=== PATIENT | female | born 1950 | race African-American/Black ===

== ENCOUNTER 2016-09-09 07:09 | Day surgery (SDC) | payer BC ==
[2016-09-02 14:06] VITALS: BMI 38.2
[2016-09-09] MEDS ORDERED: BUPIVACAINE HCL/PF 2.5 MG/ML - 30 ML VIAL IJ ONE (08:53)
[2016-09-09] MEDS ORDERED: MIDAZOLAM HCL 2 MG/2 ML SINGLE DOSE VIAL ONE (09:09)
[2016-09-09] MEDS ORDERED: PROPOFOL 20 ML ONE ×2 (09:13)
[2016-09-09] MEDS ORDERED: LIDOCAINE HCL/PF 2% SDV 5ML VIAL ONE (09:20)
[2016-09-09] MEDS ORDERED: KETOROLAC TROMETHAMINE 30 MG/1 ML VIAL ONE (09:21)
[2016-09-09] MEDS ORDERED: ONDANSETRON 4 MG/2 ML VIAL ONE ×2 (09:21→10:27)
[2016-09-09] MEDS ORDERED: ceFAZolin SODIUM 1 GM VIAL ONE (09:21)
[2016-09-09] MEDS ORDERED: DEXAMETHASONE SOD PHOSPHATE 4 MG/1 ML VIAL ONE (09:21)
[2016-09-09] MEDS ORDERED: BUPIVACAINE HCL/PF 0.25% (2.5MG/ML) 10 ML VIAL IJ ONE (09:35)
[2016-09-09] MEDS ORDERED: oxyCODONE HCL 5 MG TABLET PO PRN (10:11)
[2016-09-09] MEDS ORDERED: ONDANSETRON 4 MG/2 ML VIAL IVPUSH PRN (10:11)
[2016-09-09] MEDS ORDERED: LACTATED RINGERS SOLUTION 1,000 ML IV SCH (10:15)
[2016-09-09 13:00] VITALS: TEMP 98.2
[2016-09-09 13:05] VITALS: BP 119/61; PULSE 66
--- NOTE | 2016-09-12 00:30 | OP ---
DATE OF OPERATION: 09/09/2016 SURGEON: Danelle Marino MD SAND CARRIER: IVCK Turpin PREOPERATIVE DIAGNOSIS: 1. Right knee medial and lateral meniscal tear. 2. Right knee cartilage injury. 3. Right knee synovitis. POSTOPERATIVE DIAGNOSIS: 1. Right knee medial and lateral meniscal tear. 2. Right knee cartilage injury. 3. Right knee synovitis. PROCEDURE: 1. Right knee arthroscopy with partial meniscectomy of medial and lateral meniscus. 2. Right knee arthroscopy with chondroplasty and abrasioplasty. 3. Right knee arthroscopy with synovectomy major. CPT code 37173, 83127, 20338. FINDINGS: 1. Medial meniscus body and posterior horn tear. 2. Lateral meniscus posterior one-half tear. 3. Synovitis of patellofemoral, medial and lateral notch area. 4. Diffuse grade 2-3 cartilage injury of medial femoral condyle. 5. ACL and PCL intact. 6. Diffuse grade 2-3 cartilage changes of the lateral tibial plateau and femoral condyle. 7. Grade 1-2 cartilage injury of patella central grade 4 changes and 2-4 changes of the patellofemoral trochlea. PROCEDURE: Informed consent was obtained. The patient was taken to the operating room where the right lower extremity was prepped and draped in a sterile fashion. A tourniquet was placed on the right upper thigh but not inflated. Using standard arthroscopic technique, a lateral incision and portal were made which allowed for introduction of the camera into the suprapatellar bursa. This was then taken to the medial joint line where under direct visualization, a medial incision and portal were made. Excessive synovium noted in the medial, lateral, patellofemoral and notch area was removed by the up-biting shaver and Bovie cautery. This was found to bring inflammatory tissue into the joint surface, a source of joint pain and dysfunction. Probing of the medial and lateral meniscus found tears described in the findings. These were removed with an up-biting shaver and taken back to a stable rim. Grade 2-3 degenerative changes were treated with chondroplasty, removing all flaking surfaces with low setting Bovie used along the periphery. Grade 4 changes were treated with abrasion-plasty. All areas of the knee were once again re-examined. The knee was then drained. A single suture was placed on all portals. Sterile dressing was placed. The patient was transferred to the recovery room. Please note, that when working on the medial joint line there was a strain of the MCL with a partial tear by clinical examination, not found to be a complete tear. DANELLE MARINO M.D. [id number]
--- NOTE | 2016-09-15 16:45 | PATH ---
Surgical Pathology Report Patient Name: ANNALISE MOREIRA [facility]. Rec. #: [id number] /Age/Gender: 1950 (Age: 66) / F Account: [id number] Location: [facility] AMBULATORY Taken: 09/09/2016 Received: 09/09/2016 Reported: 09/15/2016 Physicians: Amor Nevarez M.D. Specimen(s) Received RIGHT KNEE SHAVINGS Clinical History Right knee internal derangement Final Diagnosis KNEE, RIGHT, ARTHROSCOPIC SHAVINGS: FIBROSYNOVIAL AND FIBROCOLLAGENOUS TISSUE. Electronically Signed Claudette Gallagher M.D. Gross Description Received in formalin, labeled "right knee shavings," is a 4.0 x 3.5 x 0.4 cm. aggregate of jiang-yellow soft tissue fragments. A healthcare sales representative portion is submitted in one cassette. /09/09/2016 saudi09/09/2016
== END 2016-09-09 12:30 | disposition home or self-care (01) ==
LOC: FASU 07:09
PROVIDERS: ATTEND Orthopaedic Surgery
PROC: 0SBC4ZZ Excision of Right Knee Joint, Percutaneous Endoscopic Approach (ICD-10-PCS; 2016-09-09)
PROC: 0SBC4ZZ Excision of Right Knee Joint, Percutaneous Endoscopic Approach (ICD-10-PCS; 2016-09-09)
PROC: 0SBC4ZZ Excision of Right Knee Joint, Percutaneous Endoscopic Approach (ICD-10-PCS; principal; 2016-09-09 09:28)
DX: S83.241A Other tear of medial meniscus, current injury, right knee, initial encounter (principal); S83.281A Other tear of lateral meniscus, current injury, right knee, initial encounter; S83.8X1A Sprain of other specified parts of right knee, initial encounter; M65.861 Other synovitis and tenosynovitis, right lower leg; X58.XXXA Exposure to other specified factors, initial encounter; Y93.9 Activity, unspecified; Y92.9 Unspecified place or not applicable
CPT/HCPCS: 88304-TC; 94760

== ENCOUNTER 2022-03-15 21:44 | Inpatient (IN) | payer OTHER, BC ==
[2022-03-15 21:54] VITALS: BMI 39.9
[2022-03-15] MEDS ORDERED: SODIUM CHLORIDE 3,266 ML IV ONE (22:06)
[2022-03-15] MEDS ORDERED: ACETAMINOPHEN 1000 MG/100 ML BAG IVPB ONE (22:08)
[2022-03-15] MEDS ORDERED: ONDANSETRON 4 MG/2 ML VIAL IVPUSH ONE (22:09)
[2022-03-15] MEDS ORDERED: ACETAMINOPHEN INJECTION 100 ML IVPB ONE (22:19)
[2022-03-15] MEDS ORDERED: ONDANSETRON 4 MG/2 ML VIAL ONE (22:19)
[2022-03-15 23:08] LABS: BASO % 0.3 % (0-2.0); EOS % 0.1 % (0-4.5); HEMATOCRIT 41.2 % (32.4-45.2); HEMOGLOBIN 13.5 GM/dL (10.7-15.3); LYMPH % 6.1 % (8-40); MCH 30.5 pg (25.7-33.7); MCHC 32.8 g/dl (32.0-36.0); MEAN CELL VOLUME 93.1 fl (80-96); MEAN PLT VOLUME 7.9 fl (7.5-11.1); MONO % 19.3 % (3.8-10.2); NEUT % 74.2 % (42.8-82.8); PLATELET COUNT 205 10^3/uL (134-434); RBC 4.42 M/mm3 (3.60-5.2); RDW 13.5 % (11.6-15.6); VENOUS BASE EXCESS 3.9 mmol/L (-2-2); VENOUS O2 SATURATION 68.2 % (70-80); VENOUS PCO2 47.4 mmHg (38-52); VENOUS PH 7.41 (7.310-7.410); WHITE BLOOD COUNT 4.7 K/mm3 (4.0-10.0)
[2022-03-15 23:15] LABS: INR 1.14 (0.83-1.09); PROTHROMBIN TIME (PATIENT) 13.1 SEC (9.7-13.0)
[2022-03-15 23:18] LABS: ACTIVATED PTT 26.5 SECONDS (25.2-36.5)
[2022-03-15 23:28] LABS: CHLORIDE 99 mmol/L (98-107); SODIUM 135 mmol/L (136-145)
[2022-03-15 23:32] LABS: ALBUMIN 3.3 g/dl (3.4-5.0); ANION GAP 7 MMOL/L (8-16); CALCIUM 8.9 mg/dL (8.5-10.1); CO2 29 mmol/L (21-32); GLUCOSE,RANDOM 187 mg/dL (74-106)
[2022-03-15 23:33] LABS: BLOOD UREA NITROGEN 14.8 mg/dL (7-18)
[2022-03-15 23:35] LABS: CREATININE 0.9 mg/dL (0.55-1.3)
[2022-03-15 23:36] LABS: SGOT/AST 83 U/L (15-37); SGPT/ALT 25 U/L (13-61)
[2022-03-15 23:37] LABS: BILIRUBIN,TOTAL 0.4 mg/dL (0.2-1); TOT PROT 7.5 g/dl (6.4-8.2)
[2022-03-15 23:38] LABS: ALK PHOS 77 U/L (45-117)
[2022-03-15] MEDS ORDERED: ALBUTEROL SO4 2.5/IPRATROPIUM 0.5 INH SOL 3 ML VIAL.NEB. NEB ONE ×2 (23:52→23:54)
[2022-03-16 00:31] LABS: ARTERIAL BLD GAS O2 SATURATION 98.1 % (95-98); ARTERIAL BLOOD GAS BASE EXCESS -0.8 mmol/L (-2-2); ARTERIAL BLOOD GAS PO2 111.1 mmHg (80-100); ARTERIAL BLOOD GAS pH 7.401 (7.350-7.450)
[2022-03-16 01:45] LABS: EPI CELLS 6 /uL (0-25.1); HYALINE CASTS 0 /uL (0-3.1); URINE APPEARANCE CLEAR; URINE BACTERIA 7 /uL (0-1359); URINE BILIRUBIN NEGATIVE (NEGATIVE); URINE COLOR DK YELLOW; URINE GLUCOSE (UA) NEGATIVE (NEGATIVE); URINE KETONE 1+ (NEGATIVE); URINE LEUK ESTERASE TRACE (NEGATIVE); URINE NITRITE NEGATIVE (NEGATIVE); URINE PROTEIN 1+ (NEGATIVE); URINE RBC 14 /uL (0-23.9); URINE UROBILINOGEN 0.2 mg/dL (0.2-1.0); URINE WBC 24 /uL (0-25.8)
[2022-03-16 01:56] LABS: COCAINE, UR NEGATIVE (NEGATIVE); METHADONE, UR NEGATIVE (NEGATIVE); PHENCYCLIDINE,URINE NEGATIVE (NEGATIVE); URINE BENZODIAZEPINES NEGATIVE (NEGATIVE)
[2022-03-16 01:57] LABS: OPIATES, URI NEGATIVE (NEGATIVE); URINE BARBITURATES NEGATIVE (NEGATIVE)
[2022-03-16 01:58] LABS: URINE AMPHETAMINES NEGATIVE (NEGATIVE)
[2022-03-16] MEDS ORDERED: CELECOXIB 200 MG CAPSULE PO PRN (02:43)
[2022-03-16] MEDS ORDERED: LABETALOL HCL 5 MG/1 ML (100MG/20 ML VIAL) IVPUSH ONE (04:00)
[2022-03-16] MEDS ORDERED: PANTOPRAZOLE 40 MG TABLET PO ONE (09:54)
[2022-03-16] MEDS ORDERED: ENOXAPARIN NA (PORCINE) 40 MG/0.4 ML DISP.SYRIN SQ ONE (09:54)
[2022-03-16] MEDS ORDERED: amLODIPine BESYLATE 5 MG TABLET (FP) ONE (09:54)
[2022-03-16] MEDS ORDERED: amLODIPine BESYLATE 5 MG TABLET (FP) PO SCH (10:00)
[2022-03-16] MEDS: ENOXAPARIN NA (PORCINE) 40 MG/0.4 ML DISP.SYRIN SQ SCH (10:03)
[2022-03-16] MEDS: PANTOPRAZOLE 40 MG TABLET PO SCH (10:04)
[2022-03-16] MEDS: OSELTAMIVIR PHOSPHATE 75 MG CAPSULE PO SCH ×3 (11:30→23:40)
[2022-03-16] MEDS ORDERED: SODIUM CHLORIDE 1,000 ML IV SCH (15:15)
[2022-03-16] MEDS ORDERED: LORazepam 2 MG/ML SDV VIAL IVPB ONE (17:52)
[2022-03-16] MEDS: OLANZapine 2.5 MG TABLET PO SCH (23:40)
[2022-03-16] MEDS: ATORVASTATIN CA 20 MG TABLET (FP) PO SCH (23:41)
[2022-03-16] MEDS: INSULIN SLIDING SCALE (NOVOLOG) 1 VIAL SQ SCH (23:41)
[2022-03-17] MEDS: INSULIN SLIDING SCALE (NOVOLOG) 1 VIAL SQ SCH ×4 (06:29→22:16)
[2022-03-17] MEDS: ENOXAPARIN NA (PORCINE) 40 MG/0.4 ML DISP.SYRIN SQ SCH (09:59)
[2022-03-17] MEDS: PANTOPRAZOLE 40 MG TABLET PO SCH (10:00)
[2022-03-17] MEDS: amLODIPine BESYLATE 10 MG TABLET (FP) PO SCH (10:00)
[2022-03-17] MEDS: OSELTAMIVIR PHOSPHATE 75 MG CAPSULE PO SCH ×2 (10:01→22:13)
[2022-03-17] MEDS: hydrALAZINE HCL 25 MG TABLET (FP) PO SCH ×2 (10:02→22:13)
[2022-03-17] MEDS ORDERED: SODIUM CHLORIDE 0.45% 1,000 ML IV SCH (10:15)
[2022-03-17 10:36] LABS: CALCIUM 8.5 mg/dL (8.5-10.1)
[2022-03-17 10:37] LABS: BLOOD UREA NITROGEN 12.6 mg/dL (7-18)
[2022-03-17 10:42] LABS: BILIRUBIN,TOTAL 0.4 mg/dL (0.2-1); TOT PROT 6.7 g/dl (6.4-8.2)
[2022-03-17 10:44] LABS: CREATININE 0.7 mg/dL (0.55-1.3)
[2022-03-17] MEDS: ALBUTEROL SO4 2.5/IPRATROPIUM 0.5 INH SOL 3 ML VIAL.NEB. NEB SCH ×3 (11:56→20:05)
[2022-03-17] MEDS: methylPREDNISolone NA SUCC 40 MG/1 ML VIAL IVPUSH SCH ×2 (13:30→18:22)
[2022-03-17 14:25] LABS: HEMATOCRIT 41.4 % (32.4-45.2); MCH 31.4 pg (25.7-33.7); MCHC 33.8 g/dl (32.0-36.0); MEAN CELL VOLUME 92.8 fl (80-96); MEAN PLT VOLUME 7.7 fl (7.5-11.1); PLATELET COUNT 159 10^3/uL (134-434); RBC 4.46 M/mm3 (3.60-5.2); RDW 13.5 % (11.6-15.6); WHITE BLOOD COUNT 3.9 K/mm3 (4.0-10.0)
[2022-03-17 15:29] LABS: ANISOCYTOSIS 0; MACROCYTOSIS 0
[2022-03-17] MEDS: ATORVASTATIN CA 20 MG TABLET (FP) PO SCH (22:12)
[2022-03-17] MEDS: OLANZapine 2.5 MG TABLET PO SCH (22:12)
[2022-03-18] MEDS: methylPREDNISolone NA SUCC 40 MG/1 ML VIAL IVPUSH SCH ×3 (01:31→18:12)
[2022-03-18] MEDS: INSULIN SLIDING SCALE (NOVOLOG) 1 VIAL SQ SCH ×4 (06:07→22:41)
[2022-03-18] MEDS: ALBUTEROL SO4 2.5/IPRATROPIUM 0.5 INH SOL 3 ML VIAL.NEB. NEB SCH ×4 (08:09→20:13)
[2022-03-18] MEDS: ENOXAPARIN NA (PORCINE) 40 MG/0.4 ML DISP.SYRIN SQ SCH (09:21)
[2022-03-18] MEDS: amLODIPine BESYLATE 10 MG TABLET (FP) PO SCH (09:22)
[2022-03-18] MEDS: hydrALAZINE HCL 25 MG TABLET (FP) PO SCH ×2 (09:22→22:41)
[2022-03-18] MEDS: PANTOPRAZOLE 40 MG TABLET PO SCH (09:22)
[2022-03-18] MEDS: OSELTAMIVIR PHOSPHATE 75 MG CAPSULE PO SCH ×2 (09:22→22:42)
[2022-03-18] MEDS: ASPIRIN 81 MG CHEWABLE TABLETS PO SCH (09:28)
[2022-03-18 09:33] LABS: BASO % 0.3 % (0-2.0); EOS % 0.1 % (0-4.5); HEMATOCRIT 41.5 % (32.4-45.2); LYMPH % 17.8 % (8-40); MCH 31.1 pg (25.7-33.7); MCHC 33.8 g/dl (32.0-36.0); MEAN CELL VOLUME 91.9 fl (80-96); MEAN PLT VOLUME 7.8 fl (7.5-11.1); MONO % 14.9 % (3.8-10.2); NEUT % 66.9 % (42.8-82.8); PLATELET COUNT 162 10^3/uL (134-434); RBC 4.52 M/mm3 (3.60-5.2); RDW 13.3 % (11.6-15.6); WHITE BLOOD COUNT 2.8 K/mm3 (4.0-10.0)
[2022-03-18 10:27] LABS: CALCIUM 8.8 mg/dL (8.5-10.1)
[2022-03-18 10:28] LABS: BLOOD UREA NITROGEN 9.7 mg/dL (7-18); MAGNESIUM 2.1 mg/dL (1.8-2.4)
[2022-03-18 10:31] LABS: CREATININE 0.7 mg/dL (0.55-1.3)
[2022-03-18 10:32] LABS: BILIRUBIN,TOTAL 0.3 mg/dL (0.2-1); TOT PROT 6.6 g/dl (6.4-8.2)
[2022-03-18] MEDS ORDERED: LORazepam 2 MG/ML SDV VIAL IVPUSH ONE (15:18)
[2022-03-18] MEDS: ATORVASTATIN CA 20 MG TABLET (FP) PO SCH (22:41)
[2022-03-18] MEDS: OLANZapine 2.5 MG TABLET PO SCH (22:41)
[2022-03-19] MEDS: methylPREDNISolone NA SUCC 40 MG/1 ML VIAL IVPUSH SCH (01:31)
[2022-03-19] MEDS: INSULIN SLIDING SCALE (NOVOLOG) 1 VIAL SQ SCH ×4 (06:47→21:25)
[2022-03-19] MEDS ORDERED: INSULIN (LEVEMIR) 100 UNITS/ML UNITS SQ SCH (07:00)
[2022-03-19] MEDS: ALBUTEROL SO4 2.5/IPRATROPIUM 0.5 INH SOL 3 ML VIAL.NEB. NEB SCH ×4 (08:10→20:36)
[2022-03-19 10:00] LABS: BASO % 0.1 % (0-2.0); HEMATOCRIT 43.6 % (32.4-45.2); HEMOGLOBIN 14.4 GM/dL (10.7-15.3); LYMPH % 8.2 % (8-40); MCH 30.5 pg (25.7-33.7); MEAN CELL VOLUME 92.5 fl (80-96); MEAN PLT VOLUME 7.9 fl (7.5-11.1); MONO % 10.8 % (3.8-10.2); NEUT % 80.9 % (42.8-82.8); PLATELET COUNT 188 10^3/uL (134-434); RBC 4.71 M/mm3 (3.60-5.2); RDW 13.2 % (11.6-15.6); WHITE BLOOD COUNT 5.1 K/mm3 (4.0-10.0)
[2022-03-19 10:16] LABS: ALBUMIN 2.9 g/dl (3.4-5.0); BLOOD UREA NITROGEN 16.5 mg/dL (7-18)
[2022-03-19 10:20] LABS: CREATININE 0.8 mg/dL (0.55-1.3)
[2022-03-19 10:21] LABS: BILIRUBIN,TOTAL 0.4 mg/dL (0.2-1); TOT PROT 6.6 g/dl (6.4-8.2)
[2022-03-19] MEDS: ENOXAPARIN NA (PORCINE) 40 MG/0.4 ML DISP.SYRIN SQ SCH (10:25)
[2022-03-19] MEDS: hydrALAZINE HCL 25 MG TABLET (FP) PO SCH ×2 (10:25→21:25)
[2022-03-19] MEDS: OSELTAMIVIR PHOSPHATE 75 MG CAPSULE PO SCH ×2 (10:25→21:25)
[2022-03-19] MEDS: amLODIPine BESYLATE 10 MG TABLET (FP) PO SCH (10:25)
[2022-03-19] MEDS: ASPIRIN 81 MG CHEWABLE TABLETS PO SCH (10:25)
[2022-03-19] MEDS: PANTOPRAZOLE 40 MG TABLET PO SCH (10:25)
[2022-03-19] MEDS ORDERED: LOSARTAN POTASSIUM 25 MG TABLET PO SCH (12:19)
[2022-03-19] MEDS ORDERED: POTASSIUM CHLORIDE TABS 20 MEQ TABLET.ER (FP) PO ONE (12:45)
[2022-03-19] MEDS ORDERED: LOSARTAN POTASSIUM 25 MG TABLET PO ONE (14:23)
[2022-03-19 14:50] LABS: MAGNESIUM 2.3 mg/dL (1.8-2.4)
[2022-03-19 17:11] LABS: N-TERMINAL BNP 237.7 pg/ml (5-125); PHOSPHOROUS 2.8 mg/dL (2.5-4.9)
[2022-03-19] MEDS: OLANZapine 2.5 MG TABLET PO SCH (21:25)
[2022-03-19] MEDS: INSULIN (LEVEMIR) 100 UNITS/ML UNITS SQ SCH (21:25)
[2022-03-19] MEDS: ATORVASTATIN CA 20 MG TABLET (FP) PO SCH (21:25)
[2022-03-19] MEDS: guaiFENesin/D-M SUGAR-FREE/ACLHOL-FREE 5 ML UNIT DOSE PO PRN (23:32)
[2022-03-20] MEDS ORDERED: ALBUTEROL SO4 2.5/IPRATROPIUM 0.5 INH SOL 3 ML VIAL.NEB. NEB ONE (04:11)
[2022-03-20] MEDS: INSULIN SLIDING SCALE (NOVOLOG) 1 VIAL SQ SCH ×4 (06:03→21:43)
[2022-03-20] MEDS: INSULIN (LEVEMIR) 100 UNITS/ML UNITS SQ SCH (06:11)
[2022-03-20] MEDS: ALBUTEROL SO4 2.5/IPRATROPIUM 0.5 INH SOL 3 ML VIAL.NEB. NEB SCH ×4 (07:20→20:23)
[2022-03-20] MEDS: ASPIRIN 81 MG CHEWABLE TABLETS PO SCH (09:40)
[2022-03-20] MEDS: OSELTAMIVIR PHOSPHATE 75 MG CAPSULE PO SCH ×2 (09:40→21:22)
[2022-03-20] MEDS: ENOXAPARIN NA (PORCINE) 40 MG/0.4 ML DISP.SYRIN SQ SCH (09:40)
[2022-03-20] MEDS: PANTOPRAZOLE 40 MG TABLET PO SCH (09:41)
[2022-03-20] MEDS: LOSARTAN POTASSIUM 25 MG TABLET PO SCH (09:41)
[2022-03-20] MEDS: amLODIPine BESYLATE 10 MG TABLET (FP) PO SCH (09:41)
[2022-03-20] MEDS: hydrALAZINE HCL 25 MG TABLET (FP) PO SCH ×2 (09:41→21:22)
[2022-03-20] MEDS ORDERED: LOSARTAN POTASSIUM 25 MG TABLET PO SCH (10:00)
[2022-03-20 10:19] LABS: ARTERIAL BLD GAS O2 SATURATION 89.4 % (95-98); ARTERIAL BLOOD GAS BASE EXCESS 7.7 mmol/L (-2-2); ARTERIAL BLOOD GAS PO2 51.9 mmHg (80-100); ARTERIAL BLOOD GAS pH 7.494 (7.350-7.450)
[2022-03-20 10:21] LABS: ALLENS TEST POSITIVE
[2022-03-20] MEDS ORDERED: INSULIN SLIDING SCALE (NOVOLOG) 1 VIAL SQ ONE ×2 (11:51→17:04)
[2022-03-20] MEDS ORDERED: POTASSIUM CHLORIDE TABS 20 MEQ TABLET.ER (FP) PO ONE (17:10)
[2022-03-20] MEDS: ATORVASTATIN CA 20 MG TABLET (FP) PO SCH (21:23)
[2022-03-20] MEDS: OLANZapine 2.5 MG TABLET PO SCH (21:23)
[2022-03-21] MEDS: guaiFENesin/D-M SUGAR-FREE/ACLHOL-FREE 5 ML UNIT DOSE PO PRN (03:11)
[2022-03-21] MEDS: INSULIN SLIDING SCALE (NOVOLOG) 1 VIAL SQ SCH ×4 (06:34→21:04)
[2022-03-21] MEDS: INSULIN (LEVEMIR) 100 UNITS/ML UNITS SQ SCH (06:34)
[2022-03-21] MEDS: ALBUTEROL SO4 2.5/IPRATROPIUM 0.5 INH SOL 3 ML VIAL.NEB. NEB SCH ×4 (07:15→20:12)
[2022-03-21 10:00] LABS: ARTERIAL BLD GAS O2 SATURATION 97.5 % (95-98); ARTERIAL BLOOD GAS BASE EXCESS 6.3 mmol/L (-2-2); ARTERIAL BLOOD GAS PO2 96.6 mmHg (80-100); ARTERIAL BLOOD GAS pH 7.446 (7.350-7.450)
[2022-03-21 10:01] LABS: ALLENS TEST POSITIVE
[2022-03-21] MEDS: hydrALAZINE HCL 50 MG TABLET (FP) PO SCH ×2 (10:42→21:04)
[2022-03-21] MEDS: PANTOPRAZOLE 40 MG TABLET PO SCH (10:42)
[2022-03-21] MEDS: ENOXAPARIN NA (PORCINE) 40 MG/0.4 ML DISP.SYRIN SQ SCH (10:42)
[2022-03-21] MEDS: LOSARTAN POTASSIUM 25 MG TABLET PO SCH (10:42)
[2022-03-21] MEDS: OSELTAMIVIR PHOSPHATE 75 MG CAPSULE PO SCH (10:42)
[2022-03-21] MEDS: ASPIRIN 81 MG CHEWABLE TABLETS PO SCH (10:42)
[2022-03-21] MEDS: amLODIPine BESYLATE 10 MG TABLET (FP) PO SCH (10:42)
[2022-03-21 18:29] LABS: BASO % 0.5 % (0-2.0); EOS % 0.5 % (0-4.5); HEMATOCRIT 44.6 % (32.4-45.2); HEMOGLOBIN 14.5 GM/dL (10.7-15.3); LYMPH % 23.3 % (8-40); MCH 30.2 pg (25.7-33.7); MCHC 32.5 g/dl (32.0-36.0); MEAN PLT VOLUME 8.7 fl (7.5-11.1); MONO % 10.2 % (3.8-10.2); NEUT % 65.5 % (42.8-82.8); PLATELET COUNT 172 10^3/uL (134-434); RDW 13.4 % (11.6-15.6); WHITE BLOOD COUNT 6.1 K/mm3 (4.0-10.0)
[2022-03-21 18:57] LABS: CALCIUM 8.8 mg/dL (8.5-10.1)
[2022-03-21 18:58] LABS: ALBUMIN 2.7 g/dl (3.4-5.0); BLOOD UREA NITROGEN 11.2 mg/dL (7-18)
[2022-03-21 19:01] LABS: CREATININE 0.7 mg/dL (0.55-1.3)
[2022-03-21 19:02] LABS: TOT PROT 6.4 g/dl (6.4-8.2)
[2022-03-21 19:03] LABS: BILIRUBIN,TOTAL 0.4 mg/dL (0.2-1)
[2022-03-21] MEDS: ATORVASTATIN CA 20 MG TABLET (FP) PO SCH (21:04)
[2022-03-21] MEDS: OLANZapine 2.5 MG TABLET PO SCH (21:04)
[2022-03-22] MEDS: INSULIN (LEVEMIR) 100 UNITS/ML UNITS SQ SCH (06:35)
[2022-03-22] MEDS: INSULIN SLIDING SCALE (NOVOLOG) 1 VIAL SQ SCH ×4 (06:38→21:33)
[2022-03-22] MEDS: ALBUTEROL SO4 2.5/IPRATROPIUM 0.5 INH SOL 3 ML VIAL.NEB. NEB SCH (07:50)
[2022-03-22] MEDS: amLODIPine BESYLATE 10 MG TABLET (FP) PO SCH (10:26)
[2022-03-22] MEDS: ENOXAPARIN NA (PORCINE) 40 MG/0.4 ML DISP.SYRIN SQ SCH (10:26)
[2022-03-22] MEDS: ASPIRIN 81 MG CHEWABLE TABLETS PO SCH (10:26)
[2022-03-22] MEDS: LOSARTAN POTASSIUM 50 MG TABLET PO SCH (10:27)
[2022-03-22] MEDS: hydrALAZINE HCL 50 MG TABLET (FP) PO SCH ×2 (10:27→21:33)
[2022-03-22] MEDS: PANTOPRAZOLE 40 MG TABLET PO SCH (10:27)
[2022-03-22] MEDS: POTASSIUM CHLORIDE TABS 20 MEQ TABLET.ER (FP) PO ONE ×2 (14:50→14:51)
[2022-03-22] MEDS ORDERED: AZITHROMYCIN IVPB 500 MG in DEXTROSE 5%-WATER - 250 ML IVPB SCH (17:15)
[2022-03-22] MEDS: PIPERACILLIN/TAZOB 3.375 GM 3.375 GM in DEXTROSE 5%-WATER - 50 ML IVPB SCH (18:51)
[2022-03-22] MEDS: ATORVASTATIN CA 20 MG TABLET (FP) PO SCH (21:33)
[2022-03-22] MEDS: OLANZapine 2.5 MG TABLET PO SCH (21:33)
[2022-03-23] MEDS: PIPERACILLIN/TAZOB 3.375 GM 3.375 GM in DEXTROSE 5%-WATER - 50 ML IVPB SCH ×2 (01:21→09:33)
[2022-03-23] MEDS: INSULIN (LEVEMIR) 100 UNITS/ML UNITS SQ SCH (06:20)
[2022-03-23] MEDS: INSULIN SLIDING SCALE (NOVOLOG) 1 VIAL SQ SCH ×4 (06:21→21:21)
[2022-03-23] MEDS ORDERED: INSULIN SLIDING SCALE (NOVOLOG) 1 VIAL SQ ONE (07:06)
[2022-03-23] MEDS ORDERED: INSULIN (LEVEMIR) 100 UNITS/ML UNITS SQ ONE (07:06)
[2022-03-23 08:11] LABS: BASO % 0.9 % (0-2.0); EOS % 1.9 % (0-4.5); HEMATOCRIT 40.7 % (32.4-45.2); HEMOGLOBIN 13.4 GM/dL (10.7-15.3); MCH 30.3 pg (25.7-33.7); MCHC 32.9 g/dl (32.0-36.0); MEAN CELL VOLUME 92.1 fl (80-96); MEAN PLT VOLUME 8.6 fl (7.5-11.1); MONO % 16.8 % (3.8-10.2); NEUT % 59.4 % (42.8-82.8); PLATELET COUNT 215 10^3/uL (134-434); RBC 4.42 M/mm3 (3.60-5.2); RDW 13.3 % (11.6-15.6)
[2022-03-23 08:50] LABS: ALBUMIN 2.4 g/dl (3.4-5.0); BLOOD UREA NITROGEN 7.2 mg/dL (7-18); CALCIUM 8.6 mg/dL (8.5-10.1)
[2022-03-23 08:53] LABS: CREATININE 0.6 mg/dL (0.55-1.3)
[2022-03-23 08:55] LABS: BILIRUBIN,TOTAL 0.6 mg/dL (0.2-1); TOT PROT 5.6 g/dl (6.4-8.2)
[2022-03-23] MEDS: AZITHROMYCIN IVPB 500 MG/250 ML BAG IVPB SCH (09:29)
[2022-03-23] MEDS: LOSARTAN POTASSIUM 50 MG TABLET PO SCH (09:30)
[2022-03-23] MEDS: hydrALAZINE HCL 50 MG TABLET (FP) PO SCH ×2 (09:31→21:09)
[2022-03-23] MEDS: ASPIRIN 81 MG CHEWABLE TABLETS PO SCH (09:31)
[2022-03-23] MEDS: PANTOPRAZOLE 40 MG TABLET PO SCH (09:31)
[2022-03-23] MEDS: amLODIPine BESYLATE 10 MG TABLET (FP) PO SCH (09:31)
[2022-03-23] MEDS: HYDROCHLOROTHIAZIDE 25 MG TABLET (FP) PO SCH (11:46)
[2022-03-23] MEDS: ATORVASTATIN CA 20 MG TABLET (FP) PO SCH (21:09)
[2022-03-23] MEDS: OLANZapine 2.5 MG TABLET PO SCH (21:09)
[2022-03-24] MEDS ORDERED: BACITRACIN 15 GM TUBE TOPICAL OINTMENT TP ONE (04:30)
[2022-03-24] MEDS: guaiFENesin 200 MG/10 ML 10 ML UNIT-DOSE CUPS PO PRN (06:29)
[2022-03-24] MEDS: INSULIN (LEVEMIR) 100 UNITS/ML UNITS SQ SCH (06:29)
[2022-03-24] MEDS: INSULIN SLIDING SCALE (NOVOLOG) 1 VIAL SQ SCH ×4 (06:30→21:42)
[2022-03-24] MEDS ORDERED: INSULIN (LEVEMIR) 100 UNITS/ML UNITS SQ SCH (08:15)
[2022-03-24] MEDS: hydrALAZINE HCL 50 MG TABLET (FP) PO SCH ×2 (09:46→21:42)
[2022-03-24] MEDS: PANTOPRAZOLE 40 MG TABLET PO SCH (09:46)
[2022-03-24] MEDS: amLODIPine BESYLATE 10 MG TABLET (FP) PO SCH (09:46)
[2022-03-24] MEDS: AZITHROMYCIN IVPB 500 MG/250 ML BAG IVPB SCH (09:46)
[2022-03-24] MEDS: LOSARTAN POTASSIUM 50 MG TABLET PO SCH (09:46)
[2022-03-24] MEDS: HYDROCHLOROTHIAZIDE 25 MG TABLET (FP) PO SCH (09:46)
[2022-03-24] MEDS: ASPIRIN 81 MG CHEWABLE TABLETS PO SCH (09:46)
[2022-03-24] MEDS: PIPERACILLIN/TAZOB 3.375 GM 3.375 GM in DEXTROSE 5%-WATER - 50 ML IVPB SCH ×2 (14:26→17:29)
[2022-03-24] MEDS: OLANZapine 2.5 MG TABLET PO SCH (21:42)
[2022-03-24] MEDS: ATORVASTATIN CA 20 MG TABLET (FP) PO SCH (21:42)
[2022-03-25] MEDS: PIPERACILLIN/TAZOB 3.375 GM 3.375 GM in DEXTROSE 5%-WATER - 50 ML IVPB SCH ×3 (01:46→17:07)
[2022-03-25] MEDS: INSULIN SLIDING SCALE (NOVOLOG) 1 VIAL SQ SCH ×4 (06:36→21:04)
[2022-03-25] MEDS: PANTOPRAZOLE 40 MG TABLET PO SCH (09:30)
[2022-03-25] MEDS: LOSARTAN POTASSIUM 50 MG TABLET PO SCH (09:30)
[2022-03-25] MEDS: hydrALAZINE HCL 50 MG TABLET (FP) PO SCH ×2 (09:30→21:03)
[2022-03-25] MEDS: HYDROCHLOROTHIAZIDE 25 MG TABLET (FP) PO SCH (09:30)
[2022-03-25] MEDS: amLODIPine BESYLATE 10 MG TABLET (FP) PO SCH (09:30)
[2022-03-25] MEDS: ASPIRIN 81 MG CHEWABLE TABLETS PO SCH (09:30)
[2022-03-25] MEDS: ATORVASTATIN CA 20 MG TABLET (FP) PO SCH (21:03)
[2022-03-25] MEDS: guaiFENesin 200 MG/10 ML 10 ML UNIT-DOSE CUPS PO PRN (21:03)
[2022-03-25] MEDS: OLANZapine 2.5 MG TABLET PO SCH (21:03)
[2022-03-26] MEDS: PIPERACILLIN/TAZOB 3.375 GM 3.375 GM in DEXTROSE 5%-WATER - 50 ML IVPB SCH ×3 (02:09→17:07)
[2022-03-26] MEDS: INSULIN (LEVEMIR) 100 UNITS/ML UNITS SQ SCH (06:34)
[2022-03-26] MEDS: INSULIN SLIDING SCALE (NOVOLOG) 1 VIAL SQ SCH ×4 (06:35→21:22)
[2022-03-26] MEDS: ASPIRIN 81 MG CHEWABLE TABLETS PO SCH (10:38)
[2022-03-26] MEDS: LOSARTAN POTASSIUM 50 MG TABLET PO SCH (10:38)
[2022-03-26] MEDS: hydrALAZINE HCL 50 MG TABLET (FP) PO SCH ×2 (10:39→21:22)
[2022-03-26] MEDS: amLODIPine BESYLATE 10 MG TABLET (FP) PO SCH (10:39)
[2022-03-26] MEDS: PANTOPRAZOLE 40 MG TABLET PO SCH (10:39)
[2022-03-26] MEDS: HYDROCHLOROTHIAZIDE 25 MG TABLET (FP) PO SCH (10:39)
[2022-03-26] MEDS: LACTOBACILLUS ACIDOPHILUS 1 TABLET PO SCH (12:00)
[2022-03-26] MEDS: guaiFENesin 200 MG/10 ML 10 ML UNIT-DOSE CUPS PO PRN (14:52)
[2022-03-26] MEDS: OLANZapine 2.5 MG TABLET PO SCH (21:22)
[2022-03-26] MEDS: ATORVASTATIN CA 20 MG TABLET (FP) PO SCH (21:22)
[2022-03-27] MEDS: PIPERACILLIN/TAZOB 3.375 GM 3.375 GM in DEXTROSE 5%-WATER - 50 ML IVPB SCH ×2 (02:07→09:29)
[2022-03-27] MEDS: INSULIN (LEVEMIR) 100 UNITS/ML UNITS SQ SCH (06:25)
[2022-03-27] MEDS: INSULIN SLIDING SCALE (NOVOLOG) 1 VIAL SQ SCH ×4 (06:27→21:32)
[2022-03-27] MEDS: PANTOPRAZOLE 40 MG TABLET PO SCH (09:28)
[2022-03-27] MEDS: amLODIPine BESYLATE 10 MG TABLET (FP) PO SCH (09:28)
[2022-03-27] MEDS: ASPIRIN 81 MG CHEWABLE TABLETS PO SCH (09:28)
[2022-03-27] MEDS: LACTOBACILLUS ACIDOPHILUS 1 TABLET PO SCH (09:28)
[2022-03-27] MEDS: hydrALAZINE HCL 50 MG TABLET (FP) PO SCH ×2 (09:28→21:32)
[2022-03-27] MEDS: LOSARTAN POTASSIUM 50 MG TABLET PO SCH (09:28)
[2022-03-27] MEDS: HYDROCHLOROTHIAZIDE 25 MG TABLET (FP) PO SCH (09:28)
[2022-03-27] MEDS: NADOLOL 20 MG TABLET (FP) PO SCH (14:36)
[2022-03-27] MEDS: ATORVASTATIN CA 20 MG TABLET (FP) PO SCH (21:32)
[2022-03-27] MEDS: OLANZapine 2.5 MG TABLET PO SCH (21:32)
[2022-03-28] MEDS: INSULIN SLIDING SCALE (NOVOLOG) 1 VIAL SQ SCH ×4 (06:17→21:16)
[2022-03-28] MEDS: INSULIN (LEVEMIR) 100 UNITS/ML UNITS SQ SCH ×2 (06:18→07:33)
[2022-03-28 09:07] LABS: BLOOD UREA NITROGEN 10.3 mg/dL (7-18); CALCIUM 9.2 mg/dL (8.5-10.1)
[2022-03-28 09:10] LABS: CREATININE 0.7 mg/dL (0.55-1.3)
[2022-03-28] MEDS: LOSARTAN POTASSIUM 50 MG TABLET PO SCH (09:20)
[2022-03-28] MEDS: ASPIRIN 81 MG CHEWABLE TABLETS PO SCH (09:20)
[2022-03-28] MEDS: hydrALAZINE HCL 50 MG TABLET (FP) PO SCH ×2 (09:20→21:02)
[2022-03-28] MEDS: HYDROCHLOROTHIAZIDE 25 MG TABLET (FP) PO SCH (09:20)
[2022-03-28] MEDS: NADOLOL 20 MG TABLET (FP) PO SCH (09:21)
[2022-03-28] MEDS: amLODIPine BESYLATE 10 MG TABLET (FP) PO SCH (09:21)
[2022-03-28] MEDS: PANTOPRAZOLE 40 MG TABLET PO SCH (09:21)
[2022-03-28] MEDS: LACTOBACILLUS ACIDOPHILUS 1 TABLET PO SCH (09:21)
[2022-03-28] MEDS: metroNIDAZOLE 500 MG TABLET PO SCH ×2 (14:02→21:02)
[2022-03-28] MEDS: CEFUROXIME AXETIL 500 MG TABLET PO SCH ×2 (14:02→21:02)
[2022-03-28] MEDS: BANATROL PLUS POWDER PACKET PO SCH (21:01)
[2022-03-28] MEDS: OLANZapine 2.5 MG TABLET PO SCH (21:02)
[2022-03-28] MEDS: ATORVASTATIN CA 20 MG TABLET (FP) PO SCH (21:02)
[2022-03-29] MEDS: BANATROL PLUS POWDER PACKET PO SCH ×2 (06:37→13:19)
[2022-03-29] MEDS: metroNIDAZOLE 500 MG TABLET PO SCH ×2 (06:37→14:12)
[2022-03-29] MEDS: INSULIN SLIDING SCALE (NOVOLOG) 1 VIAL SQ SCH ×3 (06:45→17:10)
[2022-03-29] MEDS: INSULIN (LEVEMIR) 100 UNITS/ML UNITS SQ SCH (06:45)
[2022-03-29] MEDS: HYDROCHLOROTHIAZIDE 25 MG TABLET (FP) PO SCH (09:13)
[2022-03-29] MEDS: amLODIPine BESYLATE 10 MG TABLET (FP) PO SCH (09:13)
[2022-03-29] MEDS: hydrALAZINE HCL 50 MG TABLET (FP) PO SCH (09:13)
[2022-03-29] MEDS: CEFUROXIME AXETIL 500 MG TABLET PO SCH (09:13)
[2022-03-29] MEDS: LACTOBACILLUS ACIDOPHILUS 1 TABLET PO SCH (09:13)
[2022-03-29] MEDS: PANTOPRAZOLE 40 MG TABLET PO SCH (09:13)
[2022-03-29] MEDS: NADOLOL 20 MG TABLET (FP) PO SCH (09:13)
[2022-03-29] MEDS: LOSARTAN POTASSIUM 50 MG TABLET PO SCH (09:13)
[2022-03-29] MEDS: ASPIRIN 81 MG CHEWABLE TABLETS PO SCH (09:13)
[2022-03-29 14:25] VITALS: BP 116/72; PULSE 98; RESP 20; TEMP 98.3
== END 2022-03-29 18:00 | disposition home health service (06) | DRG 193 ==
LOC: JER 21:44 → JERBED 03-16 01:15 → J4S 03-16 20:55
PROVIDERS: ADMIT Internal Medicine; ATTEND Family Medicine
DX: J10.1 Influenza due to other identified influenza virus with other respiratory manifestations (principal); G93.41 Metabolic encephalopathy; I24.8 Other forms of acute ischemic heart disease; I16.1 Hypertensive emergency; E87.1 Hypo-osmolality and hyponatremia; E78.5 Hyperlipidemia, unspecified; E11.9 Type 2 diabetes mellitus without complications; I25.10 Atherosclerotic heart disease of native coronary artery without angina pectoris; E87.5 Hyperkalemia; F20.9 Schizophrenia, unspecified; I45.10 Unspecified right bundle-branch block; I11.0 Hypertensive heart disease with heart failure; I50.9 Heart failure, unspecified; J98.01 Acute bronchospasm; E07.9 Disorder of thyroid, unspecified; E03.9 Hypothyroidism, unspecified; E66.9 Obesity, unspecified; Z68.39 Body mass index [BMI] 39.0-39.9, adult; Z95.5 Presence of coronary angioplasty implant and graft; Z79.01 Long term (current) use of anticoagulants
CPT/HCPCS: 0241U-QW; 36415; 36600; 70450-TC; 70544-TC; 70551-TC; 71045-TC-FY; 71250-TC; 71260-TC; 72125-TC; 74177-TC; 80048; 80053; 80061; 80307; 81003; 82550; 82803; 82962; 83036; 83605; 83735; 83880; 84100; 84439; 84443; 84445; 84481; 84484; 85025; 85610; 85730; 86376; 86800; 86850; 86900; 86901; 87040; 87086; 87324; 87449; 87899; 93005; 93010; 93306-TC; 93880-TC; 94640; 94761; 97116-GP; 97161-GP; 99285-25; Q9967

== ENCOUNTER 2024-11-29 06:13 | Day surgery (SDC) | payer OTHER, BC ==
[2024-11-25 14:59] VITALS: BMI 38.2
[2024-11-29] MEDS ORDERED: DEXAMETHASONE SOD PHOSPHATE 4 MG/1 ML VIAL ONE (10:08)
[2024-11-29] MEDS ORDERED: PROPOFOL 20 ML ONE (10:08)
[2024-11-29] MEDS ORDERED: ONDANSETRON 4 MG/2 ML VIAL ONE (10:08)
[2024-11-29] MEDS ORDERED: MIDAZOLAM HCL 2 MG/2 ML SINGLE DOSE VIAL ONE (10:09)
[2024-11-29] MEDS ORDERED: BUPIVACAINE HCL/PF 0.5% (5MG/ML) 10 ML VIAL ONE (10:29)
[2024-11-29] MEDS ORDERED: ACETAMINOPHEN INJECTION 100 ML ONE (10:34)
[2024-11-29] MEDS ORDERED: ROCURONIUM BROMIDE 50 MG/5 ML SYRINGE ONE (10:36)
[2024-11-29] MEDS: BUPIVACAINE HCL/PF 0.5% (5 MG/ML) 30 ML VIAL IJ ONE ×2 (11:07)
[2024-11-29] MEDS ORDERED: SUGAMMADEX SODIUM 200 MG/2 ML VIAL ONE (11:53)
[2024-11-29] MEDS ORDERED: LABETALOL HCL 20 MG/4 ML VIAL ONE (11:53)
[2024-11-29] MEDS ORDERED: ONDANSETRON 4 MG/2 ML VIAL IVPUSH PRN (12:10)
[2024-11-29] MEDS ORDERED: LACTATED RINGERS SOLUTION 1,000 ML IV SCH (12:15)
[2024-11-29] MEDS ORDERED: ALBUTEROL SO4 0.083% IH SOL 2.5 MG/3 ML VIAL.NEB. NEB ONE (13:37)
[2024-11-29 15:00] VITALS: RESP 20; TEMP 97
[2024-11-29 15:02] VITALS: BP 148/71; PULSE 59
== END 2024-11-29 15:19 | disposition home or self-care (01) ==
LOC: JASU-SURG 06:13
PROVIDERS: ATTEND Surgery
PROC: 0FT44ZZ Resection of Gallbladder, Percutaneous Endoscopic Approach (ICD-10-PCS; principal; 2024-11-29 11:00)
DX: K81.1 Chronic cholecystitis (principal); R59.0 Localized enlarged lymph nodes
CPT/HCPCS: 82962; 88304-TC; 94760